=== PATIENT | female | born 1950 | race Caucasian/White ===

== ENCOUNTER 2016-12-10 10:12 | Emergency (ER) | payer MEDICARE, OTHER ==
[2016-12-10] MEDS ORDERED: Diltiazem 25 MG/5 ML SDV IVPUSH ONE (10:32)
[2016-12-10] MEDS ORDERED: Sodium Chloride 0.9% 10 ML Syringe FLUSH PRN (10:32)
[2016-12-10] MEDS ORDERED: Sodium Chloride 0.9% 1,000 ML IV SCH (10:45)
--- NOTE | 2016-12-10 11:01 | EDM.PDOC ---
ED HPI GENERAL MEDICAL PROBLEM - General Chief Complaint: Back Pain or Injury Stated Complaint: SHOULDERBLADE PAIN/SHORT BREATH Time Seen by Provider: 12/10/16 10:31 Source of Information: Reports: Patient History Limitations: Reports: No Limitations - History of Present Illness INITIAL COMMENTS - FREE TEXT/NARRATIVE: Patient presents with upper midline back pain since 0630 this am. It is worse with inspiration. 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 Takes methotrexate for arthritis. Current 1/2 PPD smoker since teenage years. She has no complaints of chest pain, shortness of breath, sweating, abdominal pain, no nausea or vomiting, no pain to either arm or neck. Onset: Today, Sudden Onset Date: 12/10/16 Onset Time: 06:30 Location: Reports: Back Severity: Moderate Associated Symptoms: Reports: No Other Symptoms - Related Data Allergies Allergy/AdvReac Type Severity Reaction Status Date / Time Penicillins Allergy Rash Verified 12/10/16 10:33 Home Meds: Home Meds Aspirin 81 mg PO DAILY 12/10/16 [History] Calcium Carbonate/Vitamin D3 [Calcium 600 + Vit D 200] 1 each PO DAILY 12/10/16 [History] Calcium Polycarbophil [Fibercon] 1,250 mg PO DAILY 12/10/16 [History] Folic Acid 1 mg PO DAILY 12/10/16 [History] Methotrexate 20 mg PO WEEKLY 12/10/16 [History] Multivitamin [Multivitamins] 1 each PO DAILY 12/10/16 [History] Simvastatin [Zocor] 10 mg PO BEDTIME 12/10/16 [History] Past Medical History Cardiovascular History: Reports: High Cholesterol Musculoskeletal History: Reports: RA Social & Family History - Tobacco Use Smoking Status *Q: Current Every Day Smoker Years of Tobacco use: 40 Packs/Tins Daily: 1 - Alcohol Use Days Per Week of Alcohol Use: 7 Number of Drinks Per Day: 4 Total Drinks Per Week: 28 - Recreational Drug Use Recreational Drug Use: No ED ROS GENERAL - Review of Systems Review Of Systems: See Below Constitutional: Reports: No Symptoms HEENT: Reports: No Symptoms Respiratory: Reports: No Symptoms Cardiovascular: Reports: No Symptoms Endocrine: Reports: No Symptoms GI/Abdominal: Reports: No Symptoms : Reports: No Symptoms Musculoskeletal: Reports: Back Pain Skin: Reports: No Symptoms Neurological: Reports: No Symptoms Psychiatric: Reports: No Symptoms Hematologic/Lymphatic: Reports: No Symptoms Immunologic: Reports: No Symptoms ED EXAM, UPPER BACK/NECK PAIN - Physical Exam Exam: See Below Exam Limited By: No Limitations General Appearance: Alert, WD/WN, Mild Distress Eye Exam: Bilateral Eye: EOMI, PERRL Ears Exam: Normal TMs Throat/Mouth Exam: Normal Inspection, Normal Oropharynx Head Exam: Atraumatic, Normocephalic Neck Exam: Non-Tender, Full Range of Motion, Normal Alignment, Normal Inspection Cardiovascular/Respiratory: Normal Peripheral Pulses, No JVD, Normal Breath Sounds, No Respiratory Distress, Tachycardia, Murmur GI/Abdominal: Normal Bowel Sounds, Soft, Non-Tender, No Organomegaly, No Distention Back Exam: Normal Inspection, Full Range of Motion Extremities: Normal Inspection, Normal Range of Motion, Non-Tender, No Pedal Edema, Normal Capillary Refill Neurologic: lithograph press feeder II-XII nml As Tested, No Motor/Sensory Deficits, Alert, Normal Mood/Affect, Oriented x 3 Psychiatric: Normal Affect, Normal Mood Skin Exam: Normal Color, Warm/Dry Lymphatic: No Adenopathy Course - Vital Signs Last Recorded V/S: Last Vital Signs Temp 36.3 C 12/10/16 10:20 Pulse 72 12/10/16 13:16 Resp 14 12/10/16 11:18 BP 152/77 H 12/10/16 13:16 Pulse Ox 98 12/10/16 11:18 - Orders/Labs/Meds Orders: Active Orders 24 hr Category Date Time Status EKG 12 Lead [EKG Documentation Completion] [RC] ROUTINE Care 12/10/16 11:28 Ordered EKG Documentation Completion [RC] ROUTINE Care 12/10/16 10:32 Ordered Chest 1V Frontal [CR] Stat Exams 12/10/16 10:32 Ordered Chest PE [Ang Chest] [CT] Stat Exams 12/10/16 11:53 Ordered Diltiazem 100 MG in NS Adv @ 5 MG/HR(100ml) Med 12/10/16 12:30 Ordered Diltiazem [Cardizem] 100 mg Sodium Chloride 0.9% [Normal Saline] 100 ml IV TITRATE Sodium Chloride 0.9% @ 100 MLS/HR(1000ml) Med 12/10/16 10:45 Ordered Sodium Chloride 0.9% [Normal Saline] 1,000 ml IV ASDIRECTED Sodium Chloride 0.9% [Saline Flush] Med 12/10/16 10:32 Ordered 10 ml FLUSH ASDIRECTED PRN Saline Lock Insert [OM.PC] Routine Oth 12/10/16 10:32 Ordered Medication Orders Sodium Chloride (Normal Saline) 1,000 mls @ 100 mls/hr IV ASDIRECTED JAVIER Last Admin: 12/10/16 10:45 Dose: 100 mls/hr Diltiazem HCl 100 mg/ Sodium (Chloride) 100 mls @ 5 mls/hr IV TITRATE JAVIER; 5 MG /HR PRN Reason: Protocol Last Admin: 12/10/16 13:16 Dose: 5 mg/hr, 5 mls/hr Sodium Chloride (Saline Flush) 10 ml FLUSH ASDIRECTED PRN PRN Reason: Keep Vein Open Labs: Laboratory Tests 12/10/16 12/10/16 12/10/16 Range/Units 10:50 10:50 10:50 WBC 8.3 (4.0-10.0) x10^3/uL RBC 4.16 (4.00-5.50) x10^6/uL Hgb 15.7 (12.0-16.0) g/dL Hct 42.7 (33.0-47.0) % MCV 102.6 H (78.0-93.0) fL MCH 37.7 H (26.0-32.0) pg MCHC 36.8 H (32.0-36.0) g/dL RDW Coeff of Derek 12.8 (10.0-15.0) % Plt Count 160 (130-400) x10^3/uL Neut % (Auto) 78.2 (50.0-80.0) % Lymph % (Auto) 11.9 L (25.0-50.0) % Armstrong % (Auto) 9.4 (2.0-11.0) % Eos % (Auto) 0.4 (0.0-4.0) % Baso % (Auto) 0.1 L (0.2-1.2) % PT 10.5 (9.8-11.8) SEC INR 1.0 L (2.0-3.5) D-Dimer, Quantitative 1.17 H (<=0.58) mg/LFEU Sodium 140 (136-145) mmol/L Potassium 4.2 (3.5-5.1) mmol/L Chloride 102 (98-107) mmol/L Carbon Dioxide 29 (21-32) mmol/L BUN 8 (7-18) mg/dL Creatinine 0.8 (0.55-1.02) mg/dL Est Cr Clr Drug Dosing TNP Estimated GFR (MDRD) > 60 Glucose 121 H (74-106) mg/dL Calcium 9.0 (8.5-10.1) mg/dL Corrected Calcium 9.00 (8.5-10.1) mg/dL Magnesium (1.8-2.4) mg/dL Total Bilirubin 0.6 (0.2-1.0) mg/dL AST 19 (15-37) U/L ALT 22 (14-59) U/L Alkaline Phosphatase 97 (46-116) U/L Creatine Kinase 34 (26-192) U/L Creatine Kinase Index 1.5 (0.0-4.0) % CK-MB (CK-2) 0.5 (0.0-3.6) ng/mL Troponin I < 0.017 (<=0.056) ng/mL B-Natriuretic Peptide 966 H (<=125) pg/mL Total Protein 8.3 H (6.4-8.2) g/dL Albumin 4.0 (3.4-5.0) g/dL Globulin 4.3 Albumin/Globulin Ratio 0.93 07/28/17 Range/Units 10:50 WBC (4.0-10.0) x10^3/uL RBC (4.00-5.50) x10^6/uL Hgb (12.0-16.0) g/dL Hct (33.0-47.0) % MCV (78.0-93.0) fL MCH (26.0-32.0) pg MCHC (32.0-36.0) g/dL RDW Coeff of Derek (10.0-15.0) % Plt Count (130-400) x10^3/uL Neut % (Auto) (50.0-80.0) % Lymph % (Auto) (25.0-50.0) % Armstrong % (Auto) (2.0-11.0) % Eos % (Auto) (0.0-4.0) % Baso % (Auto) (0.2-1.2) % PT (9.8-11.8) SEC INR (2.0-3.5) D-Dimer, Quantitative (<=0.58) mg/LFEU Sodium (136-145) mmol/L Potassium (3.5-5.1) mmol/L Chloride (98-107) mmol/L Carbon Dioxide (21-32) mmol/L BUN (7-18) mg/dL Creatinine (0.55-1.02) mg/dL Est Cr Clr Drug Dosing Estimated GFR (MDRD) Glucose (74-106) mg/dL Calcium (8.5-10.1) mg/dL Corrected Calcium (8.5-10.1) mg/dL Magnesium 1.7 L (1.8-2.4) mg/dL Total Bilirubin (0.2-1.0) mg/dL AST (15-37) U/L ALT (14-59) U/L Alkaline Phosphatase (46-116) U/L Creatine Kinase (26-192) U/L Creatine Kinase Index (0.0-4.0) % CK-MB (CK-2) (0.0-3.6) ng/mL Troponin I (<=0.056) ng/mL B-Natriuretic Peptide (<=125) pg/mL Total Protein (6.4-8.2) g/dL Albumin (3.4-5.0) g/dL Globulin Albumin/Globulin Ratio Meds: Medications Generic Name Dose Route Start Last Admin Trade Name Freq PRN Reason Stop Dose Admin Sodium Chloride 1,000 mls @ 100 mls/hr 12/10/16 10:45 12/10/16 10:45 Normal Saline IV 100 mls/hr ASDIRECTED JAVIER Administration Diltiazem HCl 100 mg/ Sodium 100 mls @ 5 mls/hr 12/10/16 12:30 12/10/16 13:16 Chloride IV 5 mg/hr TITRATE JAVIER 5 mls/hr Protocol Administration 5 MG/HR Sodium Chloride 10 ml 12/10/16 10:32 Saline Flush FLUSH ASDIRECTED PRN Keep Vein Open Discontinued Medications Generic Name Dose Route Start Last Admin Trade Name Freq PRN Reason Stop Dose Admin Aspirin 324 mg 12/10/16 11:55 07/28/17 12:40 Aspirin PO 12/10/16 11:56 324 mg ONETIME ONE Administration Diltiazem HCl 25 mg 12/10/16 10:32 12/10/16 11:01 Diltiazem IVPUSH 12/10/16 10:33 25 mg ONETIME ONE Administration Methylprednisolone Sodium Succinate 125 mg 12/10/16 13:12 Solu-Medrol IVPUSH 12/10/16 13:13 ONETIME ONE Morphine Sulfate 2 mg 12/10/16 11:55 12/10/16 12:37 Morphine IVPUSH 12/10/16 11:56 2 mg ONETIME ONE Administration - Re-Assessments/Exams Free Text/Narrative Re-Assessment/Exam: 12/10/16 13:20 Discussed care of patient with Dr[facility] hospitalist. He will accept care of patient. Await bed number. 12/10/16 14:21 Room number given, report called by Lorelei Lira RN to [facility]. Awaiting ambulance transport. Departure - Departure Time of Disposition: 14:21 Disposition: DC/Tfer to Acute Hospital 02 Condition: Good Clinical Impression: Atrial fibrillation with RVR - Discharge Information Forms: ED Department Discharge, Interfacility Transfer EMTALA - My Orders Last 24 Hours: My Active Orders 12/10/16 10:32 EKG Documentation Completion [RC] ROUTINE Chest 1V Frontal [CR] Stat Sodium Chloride 0.9% [Saline Flush] 10 ml FLUSH ASDIRECTED PRN Saline Lock Insert [OM.PC] Routine 12/10/16 10:45 Sodium Chloride 0.9% @ 100 MLS/HR(1000ml) Sodium Chloride 0.9% [Normal Saline] 1 ,000 ml IV ASDIRECTED 12/10/16 11:28 EKG 12 Lead [EKG Documentation Completion] [RC] ROUTINE 12/10/16 11:53 Chest PE [Ang Chest] [CT] Stat 12/10/16 12:30 Diltiazem 100 MG in NS Adv @ 5 MG/HR(100ml) Diltiazem [Cardizem] 100 mg Sodium Chloride 0.9% [Normal Saline] 100 ml IV TITRATE - Assessment/Plan Last 24 Hours: My Active Orders 12/10/16 10:32 EKG Documentation Completion [RC] ROUTINE Chest 1V Frontal [CR] Stat Sodium Chloride 0.9% [Saline Flush] 10 ml FLUSH ASDIRECTED PRN Saline Lock Insert [OM.PC] Routine 12/10/16 10:45 Sodium Chloride 0.9% @ 100 MLS/HR(1000ml) Sodium Chloride 0.9% [Normal Saline] 1 ,000 ml IV ASDIRECTED 12/10/16 11:28 EKG 12 Lead [EKG Documentation Completion] [RC] ROUTINE 12/10/16 11:53 Chest PE [Ang Chest] [CT] Stat 12/10/16 12:30 Diltiazem 100 MG in NS Adv @ 5 MG/HR(100ml) Diltiazem [Cardizem] 100 mg Sodium Chloride 0.9% [Normal Saline] 100 ml IV TITRATE
[2016-12-10 11:28] LABS: CHLORIDE,CL 102 mmol/L (98-107); SODIUM,NA 140 mmol/L (136-145)
[2016-12-10] MEDS ORDERED: Aspirin 81 MG Tab.Chew PO ONE (11:55)
[2016-12-10] MEDS ORDERED: Morphine 2 MG/ML Syringe IVPUSH ONE (11:55)
[2016-12-10] MEDS ORDERED: Diltiazem 100 MG in Sodium Chloride 0.9% 100 ML IV SCH (12:30)
[2016-12-10] MEDS ORDERED: methylPREDNISolone Sodium Succinate 125 MG/2 ML SDV IVPUSH ONE (13:12)
== END 2016-12-10 15:00 | disposition short-term general hospital (02) ==
LOC: VM.ED 10:12
DX: I48.91 Unspecified atrial fibrillation (principal); E78.00 Pure hypercholesterolemia, unspecified; M06.9 Rheumatoid arthritis, unspecified; F17.210 Nicotine dependence, cigarettes, uncomplicated; Z88.0 Allergy status to penicillin; Z79.82 Long term (current) use of aspirin; Z79.899 Other long term (current) drug therapy
CPT/HCPCS: 36415; 71010; 71275; 80053; 82550; 82553; 83735; 83880; 84484; 85025; 85379; 85610; 93005; 96361; 96365; 96366; 96375; 96376; 99284; 99285; A9270; J2270; J2930; J7030; J7050; J3490

== ENCOUNTER 2017-02-22 17:04 | Emergency (ER) | payer MEDICARE, OTHER ==
[2017-02-22] MEDS ORDERED: Sodium Chloride 0.9% 10 ML Syringe FLUSH PRN (17:27)
[2017-02-22] MEDS ORDERED: Diltiazem 25 MG/5 ML SDV IVPUSH ONE (17:27)
[2017-02-22] MEDS ORDERED: Sodium Chloride 0.9% 1,000 ML IV ONE (17:27)
--- NOTE | 2017-02-22 17:36 | EDM.PDOC ---
ED HPI GENERAL MEDICAL PROBLEM - General Chief Complaint: Cardiovascular Problem Stated Complaint: atrial fibrillation Time Seen by Provider: 02/22/17 17:17 Source of Information: Reports: Patient, Old Records History Limitations: Reports: No Limitations - History of Present Illness INITIAL COMMENTS - FREE TEXT/NARRATIVE: Patient comes in this afternoon after being advised by her rheumatology clinic that her EKG showed atrial fibrillation. The nurse at the clinic did call her and recommend she come have that looked at here at the emergency room. She did not have any symptoms and does not know when she went back into atrial fibrillation. She does have a history of prior A. fib I did see her in November of this year and had her transferred to [facility] for a cardiac workup. At that time there is no worry of structural cause for the atrial fibrillation and actually did resolve on its own. She was not sent home on any anticoagulation therapy at that time. She denies having any symptoms whatsoever while she's here in the emergency room. She denies shortness of breath, she denies chest pain or pressure, no abdominal pain. She also denies any numbness or tingling or pain down her arms or into her jaw. She has a one half to one full pack per day smoker and has been since she's been a teenager. He is having occasional alcohol use but does deny any illicit drug use. Onset: Unknown/Unsure Associated Symptoms: Reports: No Other Symptoms - Related Data Allergies Allergy/AdvReac Type Severity Reaction Status Date / Time Penicillins Allergy Rash Verified 02/22/17 17:29 Home Meds: Home Meds Aspirin 81 mg PO DAILY 12/10/16 [History] Calcium Carbonate/Vitamin D3 [Calcium 600 + Vit D 200] 1 each PO DAILY 12/10/16 [History] Calcium Polycarbophil [Fibercon] 1,250 mg PO DAILY 12/10/16 [History] Folic Acid 1 mg PO DAILY 12/10/16 [History] Methotrexate 20 mg PO WEEKLY 12/10/16 [History] Multivitamin [Multivitamins] 1 each PO DAILY 12/10/16 [History] Simvastatin [Zocor] 10 mg PO BEDTIME 12/10/16 [History] Past Medical History Cardiovascular History: Reports: High Cholesterol Musculoskeletal History: Reports: RA Social & Family History - Tobacco Use Smoking Status *Q: Current Every Day Smoker Years of Tobacco use: 40 Packs/Tins Daily: 1 - Alcohol Use Days Per Week of Alcohol Use: 7 Number of Drinks Per Day: 4 Total Drinks Per Week: 28 - Recreational Drug Use Recreational Drug Use: No ED ROS GENERAL - Review of Systems Review Of Systems: See Below Constitutional: Reports: No Symptoms HEENT: Reports: No Symptoms Respiratory: Reports: No Symptoms Cardiovascular: Reports: No Symptoms Endocrine: Reports: No Symptoms GI/Abdominal: Reports: No Symptoms : Reports: No Symptoms Musculoskeletal: Reports: No Symptoms Skin: Reports: No Symptoms Neurological: Reports: No Symptoms Psychiatric: Reports: No Symptoms Hematologic/Lymphatic: Reports: No Symptoms Immunologic: Reports: No Symptoms Free Text/Narrative/Comment: Patient describes no symptoms today. Was called and told to come here due to her ECG showing her to be in Atrial Fibrillation. She states she is asymptomatic. ED EXAM, GENERAL - Physical Exam Exam: See Below Exam Limited By: No Limitations General Appearance: Alert, WD/WN, No Apparent Distress Ears: Normal External Exam, Normal Canal, Hearing Grossly Normal, Normal TMs Nose: Normal Inspection, Normal Mucosa, No Blood Throat/Mouth: Normal Inspection, Normal Lips, Normal Teeth, Normal Gums, Normal Oropharynx, Normal Voice, No Airway Compromise Head: Atraumatic, Normocephalic Neck: Normal Inspection, Supple, Non-Tender, Full Range of Motion Respiratory/Chest: No Respiratory Distress, Lungs Clear, Normal Breath Sounds, No Accessory Muscle Use, Chest Non-Tender Cardiovascular: Systolic Murmur, Irregularly Irregular GI/Abdominal: Normal Bowel Sounds, Soft, Non-Tender, No Organomegaly, No Distention, No Abnormal Bruit, No Mass Back Exam: Normal Inspection, Full Range of Motion, NT Extremities: Normal Inspection, Normal Range of Motion, Non-Tender, Normal Capillary Refill, No Pedal Edema Neurological: Alert, Oriented, CN II-XII Intact, Normal Cognition, Normal Gait, Normal Reflexes, No Motor/Sensory Deficits Psychiatric: Normal Affect, Normal Mood Skin Exam: Warm, Dry, Intact, Normal Color, No Rash Lymphatic: No Adenopathy ED CARDIOLOGY PROCEDURES - Cardioversion Time of Cardioversion: 17:52 (20 mg cardizem given 1751-immediate conversion to sinus) Indication: Atrial Fibrillation with RVR Patient Counseled: Yes Informed Consent Obtained: No Preparation: IV Access, Monitor Cardioversion Energy: Other (20 mg cardizem) Successful: Yes Number of Attempts: 1 Patient Condition Post Cardioversion: Improved Post Cardioversion EKG Reviewed: Yes (sinus rhythm ) Course - Vital Signs Last Recorded V/S: Last Vital Signs Temp 36.1 C 02/22/17 17:04 Pulse 130 H 02/22/17 17:04 Resp 18 02/22/17 17:04 BP 152/100 H 02/22/17 17:04 Pulse Ox 97 02/22/17 17:04 - Orders/Labs/Meds Orders: Active Orders 24 hr Category Date Time Status EKG Documentation Completion [RC] ROUTINE Care 02/22/17 17:24 Ordered Chest 1V Frontal [CR] Stat Exams 02/22/17 17:24 Ordered BASIC METABOLIC PANEL,BMP [CHEM] Stat Lab 02/22/17 17:24 Ordered CBC WITH AUTO DIFF [HEME] Stat Lab 02/22/17 17:24 Ordered CK W CKMB [CHEM] Stat Lab 02/22/17 17:24 Ordered INR,PT,PROTHROMBIN TIME [COAG] Stat Lab 02/22/17 17:27 Ordered PRO B-TYPE NATRIUR PEPT,BNPPRO [CHEM] Stat Lab 02/22/17 17:24 Ordered TROPONIN I [CHEM] Stat Lab 02/22/17 17:24 Ordered Sodium Chloride 0.9% [Normal Saline] 1,000 ml Med 02/22/17 17:27 Ordered IV ONETIME Sodium Chloride 0.9% [Saline Flush] Med 02/22/17 17:27 Ordered 10 ml FLUSH ASDIRECTED PRN Saline Lock Insert [OM.PC] Routine Oth 02/22/17 17:27 Ordered Medication Orders Sodium Chloride (Normal Saline) 1,000 mls @ 999 mls/hr IV ONETIME ONE Stop: 02/22/17 18:27 Sodium Chloride (Saline Flush) 10 ml FLUSH ASDIRECTED PRN PRN Reason: Keep Vein Open Meds: Medications Generic Name Dose Route Start Last Admin Trade Name Freq PRN Reason Stop Dose Admin Sodium Chloride 1,000 mls @ 999 mls/hr 02/22/17 17:27 Normal Saline IV 02/22/17 18:27 ONETIME ONE Sodium Chloride 10 ml 02/22/17 17:27 Saline Flush FLUSH ASDIRECTED PRN Keep Vein Open Discontinued Medications Generic Name Dose Route Start Last Admin Trade Name Freq PRN Reason Stop Dose Admin Diltiazem HCl 20 mg 02/22/17 17:27 Diltiazem IVPUSH 02/22/17 17:28 ONETIME ONE Departure - Departure Time of Disposition: 19:02 Disposition: Home, Self-Care 01 Condition: Good Clinical Impression: Paroxysmal atrial fibrillation with rapid ventricular response Instructions: Atrial Fibrillation, [id number], Vitamin K Foods and Warfarin, Warfarin Coagulopathy, Warfarin: What You Need to Know Additional Instructions: I recommend following up with your primary care provider Dr. Mohan on Tuesday. When you see her Tuesday you should have an INR drawn to check the level. I would like you to take 5 mg of warfarin once daily in the evening until you see her. According to research your INR level should be between 2 and 3 for your atrial fibrillation to prevent stroke. This line is particularly for Dr. Mohan. Your [id number] score is a 4. Because you have some mitral valve stenosis you are unable to take any of the newer anticoagulation agents. Dr. Mohan may want to change your cholesterol medication as it can interact with the coumadin/warfarin. You may be more at risk for bleeding when taking the new medication. The most common bleeding site is GI bleeding. If this happens you may have blood in your stool, or you may vomit blood. You are more at risk for bleeding if you fall and hit your head or in a motor vehicle accident. Please contact the emergency room if you have any questions or concerns. - Problem List & Annotations (1) Paroxysmal atrial fibrillation with rapid ventricular response SNOMED Code(s): 065163162 Code(s): I48.0 - PAROXYSMAL ATRIAL FIBRILLATION Status: Acute Priority: Medium Current Visit: Yes - Problem List Review Problem List Initiated/Reviewed/Updated: Yes - My Orders Last 24 Hours: My Active Orders 02/22/17 17:24 EKG Documentation Completion [RC] ROUTINE Chest 1V Frontal [CR] Stat BASIC METABOLIC PANEL,BMP [CHEM] Stat CBC WITH AUTO DIFF [HEME] Stat CK W CKMB [CHEM] Stat PRO B-TYPE NATRIUR PEPT,BNPPRO [CHEM] Stat TROPONIN I [CHEM] Stat 02/22/17 17:27 INR,PT,PROTHROMBIN TIME [COAG] Stat Sodium Chloride 0.9% [Normal Saline] 1,000 ml IV ONETIME Sodium Chloride 0.9% [Saline Flush] 10 ml FLUSH ASDIRECTED PRN Saline Lock Insert [OM.PC] Routine - Assessment/Plan Last 24 Hours: My Active Orders 02/22/17 17:24 EKG Documentation Completion [RC] ROUTINE Chest 1V Frontal [CR] Stat BASIC METABOLIC PANEL,BMP [CHEM] Stat CBC WITH AUTO DIFF [HEME] Stat CK W CKMB [CHEM] Stat PRO B-TYPE NATRIUR PEPT,BNPPRO [CHEM] Stat TROPONIN I [CHEM] Stat 02/22/17 17:27 INR,PT,PROTHROMBIN TIME [COAG] Stat Sodium Chloride 0.9% [Normal Saline] 1,000 ml IV ONETIME Sodium Chloride 0.9% [Saline Flush] 10 ml FLUSH ASDIRECTED PRN Saline Lock Insert [OM.PC] Routine Assessment:: Paroxysmal atrial fibrillation Plan: I recommend following up with your primary care provider Dr. Mohan on Tuesday. When you see her Tuesday you should have an INR drawn to check the level. I would like you to take 5 mg of warfarin once daily in the evening until you see her. According to research your INR level should be between 2 and 3 for your atrial fibrillation to prevent stroke. This line is particularly for Dr. Mohan. Your [id number] score is a 4. Because you have some mitral valve stenosis you are unable to take any of the newer anticoagulation agents. Dr. Mohan may want to change your cholesterol medication as it can interact with the coumadin/warfarin. You may be more at risk for bleeding when taking the new medication. The most common bleeding site is GI bleeding. If this happens you may have blood in your stool, or you may vomit blood. You are more at risk for bleeding if you fall and hit your head or in a motor vehicle accident. Please contact the emergency room if you have any questions or concerns.
[2017-02-22 18:29] LABS: CHLORIDE,CL 101 mmol/L (98-107); SODIUM,NA 141 mmol/L (136-145)
[2017-02-22] MEDS ORDERED: Warfarin 5 MG Tab PO ONE (18:34)
== END 2017-02-22 19:10 | disposition home or self-care (01) ==
LOC: VM.ED 17:04
DX: I48.0 Paroxysmal atrial fibrillation (principal); F17.210 Nicotine dependence, cigarettes, uncomplicated; E78.00 Pure hypercholesterolemia, unspecified; Z79.82 Long term (current) use of aspirin; Z88.0 Allergy status to penicillin
CPT/HCPCS: 36415; 71010; 80048; 82550; 82553; 83880; 84443; 84484; 85025; 85610; 93005; 96361; 96374; 99285; A9270; J3490; J7030; 92960

== ENCOUNTER 2022-09-13 11:00 | Emergency (ER) | payer MEDICARE, OTHER ==
[2022-09-13] MEDS: Ketorolac 30 MG/ML SDV IM ONE (12:35)
== END 2022-09-13 12:40 | disposition home or self-care (01) ==
LOC: VM.ED 11:00
DX: S39.92XA Unspecified injury of lower back, initial encounter (principal); E78.00 Pure hypercholesterolemia, unspecified; F17.210 Nicotine dependence, cigarettes, uncomplicated; Z88.0 Allergy status to penicillin; Z79.82 Long term (current) use of aspirin; Z79.899 Other long term (current) drug therapy
CPT/HCPCS: 96372; 99282; 99283; J1885

== ENCOUNTER 2023-01-19 14:24 | Emergency (ER) | payer MEDICARE, OTHER ==
[2023-01-19] MEDS ORDERED: HYDROmorphone 1 MG/ML Syringe SUBCUT ONE (14:45)
[2023-01-19] MEDS ORDERED: Orphenadrine 60 MG/2 ML Inj IM ONE (14:46)
== END 2023-01-19 15:42 | disposition home or self-care (01) ==
LOC: VM.ED 14:24
DX: M54.50 Low back pain, unspecified (principal); F17.210 Nicotine dependence, cigarettes, uncomplicated; I48.91 Unspecified atrial fibrillation; E78.00 Pure hypercholesterolemia, unspecified; I10 Essential (primary) hypertension; K21.9 Gastro-esophageal reflux disease without esophagitis; Z79.01 Long term (current) use of anticoagulants; Z95.5 Presence of coronary angioplasty implant and graft; Z79.899 Other long term (current) drug therapy; Z88.0 Allergy status to penicillin
CPT/HCPCS: 96372; 99283; J1170; J2360